=== PATIENT | male | born 1935 | race Caucasian/White ===

== ENCOUNTER → 2016-11-17 | Outpatient (CLI) | payer OTHER ==
[~2016-11-17] MED LIST: AZITHROMYCIN500 MG PO; LEVAQUIN PO; LISINOPRIL PO; LISINOPRIL30 MG PO; OMNICEF300 M1 PO; PREDNISONE PO; SYMBICORT INH; TYLENOL325 M1 PO
--- NOTE | ~2016-11-17 | CR63 ---
[facility] A Service of [facility] & [facility] RADIOLOGY TEXT RESULTS PATIENT: MARTINEZ ZELAYA JR LOCATION: [facility] : 37 UNIT #: [id number] AGE: [address]: Kostas Marc MD SEX: M ORDER DR: [id number] [facility] [address] [place], [place] [address] [id number] O MR#: [id number] Acc #: [id number] NAME: MARTINEZ ZELAYA : 1935 SEX: M STUDY DATE/TIME: 11/17/2016 14:51 UNIT: [facility] ROOM: STUDY DESCRIPTION: CR Chest 2 View Attending Physician: Kostas Marc M.D. Referring Physician: Kostas Marc M.D. Ordering Physician: Kostas Marc M.D. Primary Care Physician: Fredi Kelly M.D. MEDICAL IMAGING REPORT This report is preliminary unless electronic signature is present EXAM Chest PA and lateral 11/17/2016 HISTORY Cough and shortness of breath for 1 week. Benign essential hypertension, asthma. FINDINGS The heart is normal in size. The lungs are hyperinflated. There is an infiltrate in the left lower lobe characteristic of pneumonia. Radiographic follow up until resolution is recommended. The remaining lung diego are clear. There are no pleural effusions. IMPRESSION Left lower lobe pneumonia. Dictated by... Elmer Gamboa M.D. THIS IS AN ELECTRONICALLY VERIFIED REPORT Elmer Gamboa M.D. at 11/21/2016 9:19 AM KRT/pcl TD: 11/17/2016 21:43 JOB #: [id number] MEDICAL IMAGING REPORT Page 1 of 1 COPY
== END | disposition home or self-care (01) ==
LOC: CRAD 14:10
DX: R05 Cough (principal); J18.9 Pneumonia, unspecified organism
CPT/HCPCS: 71020

== ENCOUNTER 2016-11-20 18:05 | Inpatient (IN) | payer OTHER ==
--- NOTE | ~2016-11-20 | CT57 ---
[facility] A Service of [facility] & [facility] RADIOLOGY TEXT RESULTS PATIENT: MARTINEZ ZELAYA JR LOCATION: [facility] 313-01 : 37 UNIT #: [id number] AGE: [address]: Freddy Montiel MD SEX: M ORDER DR: [id number] [facility] [address] [place], [place] [address] [id number] I MR#: [id number] Acc #: [id number] NAME: MARTINEZ ZELAYA JR : 1935 SEX: M STUDY DATE/TIME: 11/20/2016 21:26 UNIT: [facility] ROOM: 90640 STUDY DESCRIPTION: CT Chest Wo Cont Attending Physician: Freddy Montiel M.D. Ordering Physician: Dwayne Aponte M.D. Primary Care Physician: Fredi Kelly M.D. MEDICAL IMAGING REPORT This report is preliminary unless electronic signature is present EXAM CT chest without contrast INDICATIONS Cough, congestion, shortness of breath for [address] scan of the chest was performed without contrast. Coronal and sagittal reformatted images are obtained. No comparison studies are available. This CT exam was performed with one or more of the following radiation dose reduction techniques: automatic exposure control, adjustment of mA and/or kV according to patient size, and iterative reconstruction. FINDINGS There is a tree-in-bud infiltrate within the right upper lobe. There is minimal tree-in-bud nodularity in the right middle lobe. There is airspace consolidation in the medial left lower lobe. There is associated bronchial wall thickening in the left lower lobe. There is tree-in-bud nodularity within the right lower lobe and some minimal nodularity in the lingula. Overall the findings are most suggestive of pneumonia. There is a trace pleural fluid at the left base. There is aneurysmal dilatation of the ascending aorta measuring about 4.9 cm in greatest dimension. There is no evidence for lymphadenopathy. Coronary artery calcification. Limited imaging of the upper abdomen is unremarkable. There is a small hiatal hernia noted. Bone windows demonstrate multiple old rib fractures on the left. IMPRESSION 1. Left lower lobe airspace consolidation consistent with pneumonia. Multifocal tree-in-bud nodularity elsewhere in the lungs also consistent with pneumonia. Followup to clearing is recommended. [facility] A Service of [facility] RADIOLOGY TEXT RESULTS PATIENT: MARTINEZ ZELAYA JR LOCATION: [facility] 313-01 : 37 UNIT #: [id number] AGE: [address]: Freddy Montiel MD SEX: M ORDER DR: 2. Trace pleural fluid at the right base. 3. Aneurysmal dilatation of the ascending aorta measuring 4.9 cm in greatest dimension. Dictated by... Saran Joseph M.D. THIS IS AN ELECTRONICALLY VERIFIED REPORT Saran Joseph M.D. at 11/22/2016 7:27 AM TRELL/lissett TD: 11/21/2016 02:46 JOB #: [id number] MEDICAL IMAGING REPORT Page 1 of 1 COPY
--- NOTE | ~2016-11-20 | HP ---
Unit #: [id number] #: [id number] Patient: MARTINEZ ZELAYA JR [id number] [address] [place], [place] [address] [id number] I MR#: [id number] NAME: MARTINEZ ZELAYA JR ROOM: 65532 Age: 81 Sex: M Admission Date: 11/20/2016 : 1935 Attending Physician: Freddy Montiel M.D. Primary Care Physician: Fredi Kelly M.D. 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 Arrived in the emergency room here. He is afebrile. Room air otherwise sat is 99%. Chest x-ray showed diffuse increased markings. CT scan was consistent with a left lower lobe infiltrate as well as a 4.9 cm thoracic aortic aneurysm and the patient was admitted. REVIEW OF SYSTEMS Patient has no other complaints, other than some dyspnea on exertion, productive cough of yellowish phlegm, and subjective fever. He has no chest pain. No peripheral edema, palpitations, or any other symptoms at this time. ALLERGIES He has no known drug allergies. MEDICATIONS His only medications prior to admission: 1. Lisinopril 30 mg daily. 2. Ventolin p.r.n. PAST SURGICAL HISTORY His only surgical history is repair of a fractured nasal septum and multiple colonoscopies. SOCIAL HISTORY He is a nonsmoker. Occasional alcohol use. No street drug use. FAMILY HISTORY Noncontributory. PHYSICAL EXAMINATION GENERAL APPEARANCE: He is awake, alert, and oriented x3 in no acute distress. VITAL SIGNS: Afebrile. O2 sats 99% on room air, pulse 60, respirations 24, and blood pressure 116/71. HEENT: Unremarkable. NECK: Supple without JVD, bruits, adenopathy, or thyromegaly. CHEST: Diffusely decreased breath sounds, but clear to auscultation. HEART: Regular rate and rhythm without any murmurs, rubs, or gallops. ABDOMEN: Soft, nondistended, and nontender with positive bowel sounds, but no hepatosplenomegaly. Unit #: [id number] #: [id number] Patient: GARCIA GUO,MARTINEZ EXTREMITIES: Showed no clubbing, cyanosis, or edema. GENITOURINARY: Deferred. RECTAL: Deferred. NEUROLOGIC: Grossly intact. DIAGNOSTIC STUDIES IMAGING: He had a chest x-ray on the for some reason that showed a left lower lobe infiltrate. X-ray yesterday showed diffuse increased markings. CT scan is consistent with a left lower lobe pneumonia and a 4.9 cm thoracic aortic aneurysm. LABORATORY: White count was 14.7 with a left shift, hemoglobin was 12.6 with normal indices, and platelets were normal. BMP is normal, except for a sodium of 132 and random blood sugar of 124. Troponin was normal. CK MB was 10.7, total CPK was 173. Procalcitonin 0.11. CARDIOVASCULAR: EKG: Normal sinus rhythm, left anterior descending, poor R wave progression, and some nonspecific T inversions on the lateral leads. IMPRESSION 1. Community-acquired pneumonia, left lower lobe. 2. Mild normocytic, normochromic anemia. 3. Hypertension. 4. History of asthma. 5. Thoracic aortic aneurysm, 4.9 cm. 6. Hyponatremia. PLAN IV antibiotics. Urine for streptococcal and Legionella antigen. DVT prophylaxis. Repeat cardiac enzymes. Sputum for Gram stain and C and S. Further evaluation pending results of the above. Dictated by Pierre Brock/radha TD: 11/21/2016 08:06 JOB #: [id number] HISTORY AND PHYSICAL Page 1 of 1 X Freddy Montiel MD HISTORY AND PHYSICAL
--- NOTE | ~2016-11-20 | CR63 ---
[facility] A Service of [facility] & [facility] RADIOLOGY TEXT RESULTS PATIENT: MARTINEZ ZELAYA JR LOCATION: [facility] 313-01 : 37 UNIT #: [id number] AGE: [address]: Freddy Montiel MD SEX: M ORDER DR: [id number] [facility] [address] [place], [place] [address] [id number] I MR#: [id number] Acc #: [id number] NAME: MARTINEZ ZELAYA : 1935 SEX: M STUDY DATE/TIME: 11/23/2016 8:46 UNIT: A [facility] ROOM: [facility] STUDY DESCRIPTION: CR Chest 2 View Attending Physician: Freddy Montiel M.D. Ordering Physician: Freddy Montiel M.D. Primary Care Physician: Fredi Kelly M.D. MEDICAL IMAGING REPORT This report is preliminary unless electronic signature is present EXAM Chest x-ray 11/23/2016 HISTORY Pneumonia, cough, congestion, shortness of air. Follow up inpatient status. TECHNIQUE AP and lateral upright chest series. FINDINGS Probable infiltrate in the posteromedial left lung base appears less conspicuous today than on the recent chest x-ray and chest CT studies of 11/20/2016. Lungs are otherwise clear. No visible pleural effusion. Heart size and pulmonary vascularity are normal. IMPRESSION Possible mild residual infiltrate and/or atelectasis in the left medial lung base. Lungs otherwise clear. Dictated by... Tamir Osorio M.D. THIS IS AN ELECTRONICALLY VERIFIED REPORT Tamir Osorio M.D. at 11/23/2016 11:14 AM NICHOLAS/heidi TD: 11/23/2016 09:20 JOB #: [id number] MEDICAL IMAGING REPORT Page 1 of 1 COPY
--- NOTE | ~2016-11-20 | EKG ---
PATIENT: MARTINEZ ZELAYA UNIT #: [id number] Ventricular Rate: 72 BPM Atrial Rate: 72 BPM P-R Interval: 168 ms QRS Duration: 118 ms Q-T Interval: 414 ms QTC Calculation(Bezet): 453 ms P [place]: 22 degrees Calculated R [place]: -32 degrees Calculated T [place]: 93 degrees Diagnosis Line: Normal sinus rhythm Diagnosis Line: Left axis deviation Diagnosis Line: Septal infarct , age undetermined Diagnosis Line: T wave abnormality, consider lateral ischemia Diagnosis Line: Abnormal ECG Diagnosis Line: No previous ECGs available Diagnosis Line: Confirmed by SHANNON ACOSTA MD ([id number]) on Diagnosis Line: 11/21/2016 1:32:05 PM INTERPRETING MD: KARLA DOMINGUEZ
--- NOTE | ~2016-11-20 | CR72 ---
[facility] A Service of [facility] & [facility] RADIOLOGY TEXT RESULTS PATIENT: MARTINEZ ZELAYA JR LOCATION: [facility] 313- : 37 UNIT #: [id number] AGE: [address]: Freddy Montiel MD SEX: M ORDER DR: [id number] [facility] [address] [place], [place] [address] [id number] I MR#: [id number] Acc #: [id number] NAME: MARTINEZ ZELAYA JR : 1935 SEX: M STUDY DATE/TIME: 11/20/2016 20:23 UNIT: [facility] ROOM: 67831 STUDY DESCRIPTION: CR Chest Single View Portable Attending Physician: Freddy Montiel M.D. Ordering Physician: Marc Arguello D.O. Primary Care Physician: Fredi Kelly M.D. MEDICAL IMAGING REPORT This report is preliminary unless electronic signature is present EXAM Portable chest INDICATION Cough, congestion, pneumonia, and fever for 6 days. Compared with 11/17/2016. FINDINGS There is increased interstitial thickening and also some increased bronchial wall thickening. This may reflect worsening interstitial edema. Heart size stable. Atherosclerotic calcification of the aorta. IMPRESSION Increased interstitial thickening may reflect worsening interstitial edema. Correlate clinically. Dictated by... Saran Joseph M.D. THIS IS AN ELECTRONICALLY VERIFIED REPORT Saran Joseph M.D. at 11/22/2016 7:27 AM TRELL/lissett TD: 11/21/2016 01:16 JOB #: [id number] MEDICAL IMAGING REPORT Page 1 of 1 COPY
--- NOTE | ~2016-11-20 | DS ---
Unit #: [id number] #: [id number] Patient: MARTINEZ ZELAYA JR [id number] [address] [address] [id number] I MR#: [id number] NAME: MARTINEZ ZELAYA JR ROOM: 239 Age: 81 Sex: M Admission Date: 11/20/2016 : 1935 Discharge Date: 11/25/2016 Attending Physician: Freddy Montiel M.D. Primary Care Physician: Fredi Kelly M.D. DISCHARGE SUMMARY PRINCIPAL DISCHARGE DIAGNOSES 1. Community-acquired pneumonia, left lower lobe. 2. Normocytic, normochromic anemia. 3. Hypotension. 4. History of hypertension. 5. A 4.9 cm thoracic aortic aneurysm. 6. Hyponatremia. 7. History of asthma. PROCEDURES None. CONSULTANTS None. 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 Apparently, he had an x-ray that showed pneumonia. He was placed on Augmentin without any improvement. He arrived in the emergency room afebrile with room air O2 saturation 99%. Chest x-ray was nonspecific. CT scan of the chest showed a left lower lobe infiltrate, as well as 4.9 cm thoracic aortic aneurysm. Other pertinent labs on admission: White count 14.7 with a left shift, hemoglobin 12.6 with normal indices, and platelets were normal. BMP was normal except for a sodium of 132. Troponin was normal. Procalcitonin was 0.11. EKG showed sinus rhythm, left axis deviation, septal infarct age indeterminant, and T wave abnormality. HOSPITAL COURSE The patient was admitted. Precardiac enzymes were nondiagnostic and never above 0.5. BNP was 59. Total CPK was 173. Urine for legionella and streptococcal antigens were negative. Repeat sodium level was within normal limits. White count fell to within normal limits. Patient remained afebrile. Followup chest x-ray on the showed improvement in the left lower lobe infiltrate. Patient on oral antibiotics. He developed some hypotension. Lisinopril was discontinued. His blood pressures have been normal for the past 24 hours without any treatment. He had negative orthostatics. DISCHARGE INSTRUCTIONS 1. Regular diet. 2. He needs a followup chest x-ray in four to six weeks and a followup CT scan in six months for his aneurysm. Unit #: [id number] #: [id number] Patient: MARTINEZ ZELAYA JR 3. He will follow up with Dr. Kelly in his office in one week. DISCHARGE MEDICATIONS 1. Stop lisinopril until seen by primary care physician. 2. Tylenol 650 p.o. q.6 p.r.n. 3. Omnicef 300 mg p.o. b.i.d. for an additional 6 days. 4. Z-Winston use as directed, #1. Please note, he did have an iron, B12, and folic acid while here that were all within normal limits. His hemoglobin has remained stable, and his last hemoglobin on the was 12.6. Dictated by... Freddy Montiel M.D. TERESA/carlos TD: 11/26/2016 21:32 JOB #: [id number] DISCHARGE SUMMARY Page 1 of 1 X Freddy Montiel MD X DISCHARGE SUMMARY
[~2016-11-20 18:05] MED LIST changes: -AZITHROMYCIN500 MG PO; -LISINOPRIL30 MG PO; -OMNICEF300 M1 PO; -TYLENOL325 M1 PO
[2016-11-20 20:20] LABS: BASOPHIL# 0.1 X10e3 (0-0.3); BASOPHIL% 0.8 % (0-2.5); DIFF IND NO; EOSINOPHIL# 0.4 X10e3 (0-0.7); EOSINOPHIL% 2.4 % (0.0-7.0); HEMATOCRIT 37.9 % (38.0-50.0); HEMOGLOBIN 12.6 gm/dL (13.0-16.0); LYMPHOCYTE# 1.8 X10e3 (1.0-3.5); LYMPHOCYTE% 12.4 % (17.0-45.0); MEAN CELL VOLUME 90.9 FL (83-96); MEAN CORPUSCULAR HEMOGLOBIN 30.3 PG (28-34); MEAN CORPUSCULAR HGB CONC 33.3 g/dL (30-36); MEAN PLATELET VOLUME 7.8 FL (6.5-11.5); MONOCYTE# 0.8 X10e3 (0-1.0); MONOCYTE% 5.7 % (3.0-12.0); NEUTROPHIL# 11.5 X10e3 (1.5-7.1); NEUTROPHIL% 78.7 % (40-75); PLATELET COUNT 372 X10e3 (140-420); RED BLOOD COUNT 4.17 X10e (3.90-5.60); RED CELL DISTRIBUTION WIDTH 14.3 % (11.0-15.5); WHITE BLOOD COUNT 14.7 X10e3 (4.0-10.5)
[2016-11-20 20:44] LABS: BUN/CREATININE RATIO 15.45; CALCIUM SERUM 8.7 mg/dL (8.4-10.2); CREATININE SERUM 1.1 mg/dL (0.6-1.4); GLOM FILT RATE Estimated 63.5 mL/min (>60)
[2016-11-20 21:10] LABS: POC - CKMB 10.7 ng/mL (0.0-7.9); POC - TROPONIN <0.05 ng/mL (<=0.05)
[2016-11-20] MEDS ORDERED: LISINOPRIL30 MG PO (22:21)
[2016-11-21 09:11] LABS: %MB 4.1 % (0.0-4.0)
[2016-11-21 09:54] LABS: LEGIONELLA AG URINE NEG (NEG)
[2016-11-21 14:53] LABS: %MB 4.7 % (0.0-4.0); MB 6.6 ng/ml
[2016-11-22 05:54] LABS: HEMOGLOBIN 11.8 gm/dL (13.0-16.0); MEAN CELL VOLUME 91.2 FL (83-96); MEAN CORPUSCULAR HEMOGLOBIN 29.8 PG (28-34); MEAN CORPUSCULAR HGB CONC 32.7 g/dL (30-36); MEAN PLATELET VOLUME 8.2 FL (6.5-11.5); RED BLOOD COUNT 3.94 X10e (3.90-5.60); WHITE BLOOD COUNT 11.3 X10e3 (4.0-10.5)
[2016-11-22 07:05] LABS: BUN/CREATININE RATIO 13.63; CALCIUM SERUM 8.8 mg/dL (8.4-10.2); CREATININE SERUM 1.1 mg/dL (0.6-1.4); GLOM FILT RATE Estimated 63.5 mL/min (>60); POTASSIUM 4.6 mmol/L (3.5-5.1)
[2016-11-22 10:58] LABS: FOLATE (FOLIC ACID) 15.8 ng/mL (>5.8)
[2016-11-23 05:40] LABS: HEMATOCRIT 37.9 % (38.0-50.0); HEMOGLOBIN 12.2 gm/dL (13.0-16.0); MEAN CELL VOLUME 91.1 FL (83-96); MEAN CORPUSCULAR HEMOGLOBIN 29.4 PG (28-34); MEAN CORPUSCULAR HGB CONC 32.3 g/dL (30-36); MEAN PLATELET VOLUME 8.4 FL (6.5-11.5); RED BLOOD COUNT 4.16 X10e (3.90-5.60); RED CELL DISTRIBUTION WIDTH 13.9 % (11.0-15.5); WHITE BLOOD COUNT 12.5 X10e3 (4.0-10.5)
[2016-11-24 05:42] LABS: HEMOGLOBIN 12.6 gm/dL (13.0-16.0); MEAN CELL VOLUME 90.6 FL (83-96); MEAN CORPUSCULAR HGB CONC 33.1 g/dL (30-36); RED BLOOD COUNT 4.2 X10e (3.90-5.60); RED CELL DISTRIBUTION WIDTH 13.9 % (11.0-15.5); WHITE BLOOD COUNT 10.4 X10e3 (4.0-10.5)
[2016-11-25] MEDS ORDERED: OMNICEF300 M1 PO (07:25)
[2016-11-25] MEDS ORDERED: TYLENOL325 M1 PO (07:25)
[2016-11-25] MEDS ORDERED: AZITHROMYCIN500 MG PO (07:27)
== END 2016-11-25 10:42 | disposition home health service (06) | DRG 194 ==
LOC: CED 18:05 → CEDOF 22:18 → CED 22:33 → CEDOF 22:33 → C3A PCU 11-21 13:31 → C2A 11-24 14:56
PROVIDERS: Emergency Medicine; Internal Medicine
DX: J18.1 Lobar pneumonia, unspecified organism (principal); E87.1 Hypo-osmolality and hyponatremia; I95.9 Hypotension, unspecified; I71.2 Thoracic aortic aneurysm, without rupture; D64.9 Anemia, unspecified; I10 Essential (primary) hypertension; K21.9 Gastro-esophageal reflux disease without esophagitis; J45.909 Unspecified asthma, uncomplicated; E78.5 Hyperlipidemia, unspecified
CPT/HCPCS: 36415; 71010; 71020; 71250; 80048; 82308; 82550; 82553; 82607; 82728; 82746; 83540; 83550; 83880; 84484; 85025; 85027; 87040; 87449; 87899; 93005; 96365; 96367; 97110; 97116; 97162; 97165; 97530; 99285; G8978-GP; G8979-GP; G8987-GO; G8988-GO; G8989-GO; J0456; J0696; J1650

== ENCOUNTER → 2017-01-09 | Outpatient (CLI) | payer OTHER ==
[~2017-01-09] MED LIST changes: +AZITHROMYCIN500 MG PO; +LISINOPRIL30 MG PO; +OMNICEF300 M1 PO; +TYLENOL325 M1 PO
--- NOTE | ~2017-01-09 | CR63 ---
[facility] A Service of [facility] & [facility] RADIOLOGY TEXT RESULTS PATIENT: MARTINEZ ZELAYA LOCATION: [facility] : 37 UNIT #: [id number] AGE: [address]: Fredi Kelly MD SEX: M ORDER DR: [id number] [facility] [address] [place], [place] [address] [id number] O MR#: [id number] Acc #: [id number] NAME: MARTINEZ ZELAYA : 1935 SEX: M STUDY DATE/TIME: 01/09/2017 16:16 UNIT: [facility] ROOM: STUDY DESCRIPTION: CR Chest 2 View Attending Physician: Fredi Kelly M.D. Ordering Physician: Fredi Kelly M.D. Primary Care Physician: Fredi Kelly M.D. MEDICAL IMAGING REPORT This report is preliminary unless electronic signature is present EXAM Chest PA and lateral, 01/09/2017 HISTORY Cough, chest congestion and shortness of breath for 1 month. Benign essential hypertension. FINDINGS PA and lateral examination of the chest upright shows a good expansion of the parenchyma with a normal distribution of the pulmonary vascularity. There is no indication of congestion, effusion, infiltrate, tumor, or nodular density. The pleural reflections and diaphragmatic contours are normal. The cardiac silhouette and mediastinal anatomy is within normal limits. IMPRESSION Normal chest. Dictated by... Elmer Gamboa M.D. THIS IS AN ELECTRONICALLY VERIFIED REPORT Elmer Gamboa M.D. at 01/12/2017 8:02 AM MAXIMUS/flex TD: 01/10/2017 12:04 JOB #: [id number] MEDICAL IMAGING REPORT Page 1 of 1 COPY
== END | disposition home or self-care (01) ==
LOC: CRAD 16:03
DX: J18.9 Pneumonia, unspecified organism (principal)
CPT/HCPCS: 71020